=== PATIENT | male | born 1985 | race Two or more races ===

== ENCOUNTER 2018-04-19 16:29 | Emergency (ER) | payer OTHER ==
[2018-04-19] MEDS: SOD CHLORIDE 0.9% 1,000 ML IV (17:20)
[2018-04-19] MEDS: ONDANSETRON 4 MG INJ IV (17:20)
[2018-04-19] MEDS: FAMOTIDINE 20 MG TAB PO (17:20)
[2018-04-19 17:41] LABS: WHITE BLOOD COUNT 3.7 10^3/ul (4.8-10.8)
[2018-04-19 17:41] LABS: ABNORMAL IP MESSAGE 1; HEMATOCRIT 45.6 % (42.0-52.0); HEMOGLOBIN 15.1 g/dl (14.0-18.0); MEAN CORPUSCULAR HEMOGLOBIN 30.3 pg (29.0-33.0); MEAN CORPUSCULAR HGB CONC 33.1 g/dl (32.0-37.0); MEAN CORPUSCULAR VOLUME 91.6 fl (82.0-101.0); MEAN PLATELET VOLUME 9.2 fl (7.4-10.4); PLATELET COUNT 65 10^3/UL (140-415); POSITIVE DIFF @See below; RED BLOOD COUNT 4.98 10^6/ul (4.70-6.10); RED CELL DISTRIBUTION WIDTH 15.1 % (11.5-14.5)
[2018-04-19 17:43] LABS: ADD MAN DIFF? YES
[2018-04-19 17:58] LABS: ALANINE AMINOTRANSFERASE 82 IU/L (13-69); ALBUMIN 4.8 g/dl (3.3-4.9); ALBUMIN/GLOBULIN RATIO 1.26; ALKALINE PHOSPHATASE 135 IU/L (42-121); ANION GAP 14 (5-13); ASPARTATE AMINO TRANSFERASE 219 IU/L (15-46); BILIRUBIN,INDIRECT 0.5 mg/dl (0-1.1); BILIRUBIN,TOTAL 0.5 mg/dl (0.2-1.3); BLOOD UREA NITROGEN 8 mg/dl (7-20); CARBON DIOXIDE 31 mmol/L (21-31); CHLORIDE 104 mmol/L (97-110); CREATININE 0.79 mg/dl (0.61-1.24); Estimated GFR > 60 mL/min (>60); GLUCOSE 113 mg/dl (70-220); POTASSIUM 4.1 mmol/L (3.5-5.1); SODIUM 149 mmol/L (135-144); TOTAL PROTEIN 8.6 g/dl (6.1-8.1)
[2018-04-19 18:23] LABS: LIPASE 4928 U/L (23-300)
[2018-04-19] MEDS ORDERED: SOD CHLORIDE 0.9% 1,000 ML IV (20:30)
[2018-04-19 21:11] LABS: ANISOCYTOSIS 1+ (0-0); BASOPHILS % (M) 1 % (0-2); LYMPHOCYTES #M 1.7 10^3/ul (0.8-2.9); LYMPHOCYTES % (M) 47 % (15-51); MICROCYTOSIS 1+ (0-0); MONOCYTE #M 0.2 10^3/ul (0.3-0.9); MONOCYTES % (M) 6 % (0-11); PLATELET MORPHOLOGY COMMENT @See below; SEGMENTED NEUTROPHILS (M) % 46 % (39-77); SMUDGE%M 13 % (0-0)
== END 2018-04-19 19:30 | disposition left against medical advice (07) ==
LOC: E/R 16:29
DX: F10.129 Alcohol abuse with intoxication, unspecified (principal); K29.20 Alcoholic gastritis without bleeding; K85.20 Alcohol induced acute pancreatitis without necrosis or infection; R40.2362 Coma scale, best motor response, obeys commands, at arrival to emergency department; R40.2142 Coma scale, eyes open, spontaneous, at arrival to emergency department; R40.2242 Coma scale, best verbal response, confused conversation, at arrival to emergency department
CPT/HCPCS: 36415; 80053; 82962; 83690; 85025; 96374; 99284-25